=== PATIENT | male | born 1945 | race Caucasian/White ===

== ENCOUNTER 2021-09-03 09:05 | Day surgery (SDC) | payer MEDICARE, OTHER ==
--- NOTE | 2021-09-03 07:33 | PCM.PREANE ---
Preanesthetic Assessment - Procedure Proposed Procedure: Right Total Knee Arthroplasty - Anesthesia/Transfusion/Family Hx Anesthesia History: Prior Anesthesia Without Reaction Family History of Anesthesia Reaction: No Transfusion History: No Prior Transfusion(s) Intubation History: Unknown - Review of Systems General: No Symptoms (Right eye glaucoma/retinal detachment left eye) Pulmonary: No Symptoms (quit smoking 15 years ago, ) Cardiovascular: No Symptoms Gastrointestinal: No Symptoms Neurological: No Symptoms (History of back surgeries (lumbar fusion);/ History of Raynauds's syndrome.), Headache (history of cluster headaches) Other: Reports: None - Physical Assessment NPO Status Date: 09/02/21 NPO Status Time: 19:00 Vital Signs: HR: 65 Sat: 97% Temp: 98.5 B/P: 132/81 Resp: 20 Height: 1.88 m Weight: 80.739 kg ASA Class: 2 Mental Status: Alert & Oriented x3 Airway Class: Mallampati = 2 Dentition: Reports: Normal Dentition (plate on top/partial on bottom) Thyro-Mental Finger Breadths: 3 Mouth Opening Finger Breadths: 3 ROM/Head Extension: Full Lungs: Clear to Auscultation, Normal Respiratory Effort Cardiovascular: Regular Rate, Regular Rhythm, No Murmurs - Lab Values: All labs reviewed and noted and within acceptable ranges to proceed with scheduled procedure. - Imaging/EKG Impressions: CXR: negative EKG: SR rate=66; probable anterior infarct - Allergies Allergies/Adverse Reactions: Allergies Allergy/AdvReac Type Severity Reaction Status Date / Time No Known Allergies Allergy Verified 09/02/21 18:06 - Anesthesia Plan Pre-Op Medication Ordered: Other (Preoperative oral pain meds(lyrica, tylenol, oxycontin) @ 0940) - Acknowledgements Anesthesia Type Planned: General Anesthesia, Spinal (Right Adductor Canal Block under US guidance for post operative pain control requested by Dr. Funes.) Pt an Appropriate Candidate for the Planned Anesthesia: Yes Alternatives and Risks of Anesthesia Discussed w Pt/Guardian: Yes Pt/Guardian Understands and Agrees with Anesthesia Plan: Yes PreAnesthesia Questionnaire HEENT History: Reports: Glaucoma, Impaired Vision Cardiovascular History: Reports: None Respiratory History: Reports: None Gastrointestinal History: Reports: None Genitourinary History: Reports: None [employer]ODUCTION [employer]OL EXPERT History: Reports: None Musculoskeletal History: Reports: Osteoarthritis, Other (See Below) Other Musculoskeletal History: right knee pain Neurological History: Reports: None Psychiatric History: Reports: None Endocrine/Metabolic History: Reports: None Hematologic History: Reports: None Immunologic History: Reports: None Oncologic (Cancer) History: Reports: None Dermatologic History: Reports: None - Infectious Disease History Infectious Disease History: Reports: None - Past Surgical History Head Surgeries/Procedures: Reports: None HEENT Surgical History: Reports: Eye Surgery, Laser Surgery, Retinal Cardiovascular Surgical History: Reports: None Respiratory Surgical History: Reports: None GI Surgical History: Reports: Colonoscopy Female Surgical History: Reports: None Male Surgical History: Reports: None Endocrine Surgical History: Reports: None Neurological Surgical History: Reports: Other (See Below) Other Neurological Surgeries/Procedures: low back surgeries with hardware Musculoskeletal Surgical History: Reports: Other (See Below) Other Musculoskeletal Surgeries/Procedures:: ankle surgery, left wrist surgery Oncologic Surgical History: Reports: None Dermatological Surgical History: Reports: None - SUBSTANCE USE Tobacco Use Status *Q: Former Tobacco User Recreational Drug Use History: No - HOME MEDS Home Medications: Home Meds Amitriptyline [Elavil] 50 mg PO BEDTIME 09/02/21 [History] Gabapentin [Neurontin] 1,000 mg PO QAM 09/02/21 [History] Gabapentin [Neurontin] 500 mg PO QPM 09/02/21 [History] Aspirin [Aspirin EC] 325 mg PO BID #60 tab 09/03/21 [Rx] Hydrocodone/Acetaminophen [HYDROcodone-Acetaminophen 5-325 MG] 1 - 2 each PO Q4H PRN #40 tablet 09/03/21 [Rx] - CURRENT (IN HOUSE) MEDS Current Meds: Current Medications Acetaminophen (Acetaminophen 325 Mg Tab) 975 mg PO ONETIME CORIE Stop: 09/03/21 12:00 Morphine Sulfate 8 mg/Epinephrine HCl 0.3 mg/Cefuroxime Sodium 750 mg/Ketorolac Tromethamine 30 mg/Sodium Chloride 7.9 ml 0 mg .XX ASDIRECTED PRN PRN Reason: Pain Stop: 09/03/21 16:00 Lactated Ringer's (Ringers, Lactated) 1,000 mls @ 125 mls/hr IV ASDIRECTED CORIE Lidocaine/Sodium Bicarbonate (Lidocaine 1%/Sod Bicarbonate In Ns 8.4% 1 Ml Syringe) 0.25 ml IDERM ONETIME PRN PRN Reason: Prior to IV Start Oxycodone HCl (Oxycodone Er 10 Mg Tab.Er) 10 mg PO ONETIME CORIE Stop: 09/03/21 12:00 Pregabalin (Pregabalin 25 Mg Cap) 50 mg PO ONETIME CORIE Stop: 09/03/21 12:00 Sodium Chloride (Sodium Chloride 0.9% 10 Ml Syringe) 10 ml FLUSH ASDIRECTED PRN PRN Reason: Keep Vein Open Discontinued Medications Morphine Sulfate 8 mg/Epinephrine HCl 0.3 mg/Cefuroxime Sodium 750 mg/Ketorolac Tromethamine 30 mg/Sodium Chloride 7.9 ml 0 mg .XX ASDIRECTED PRN PRN Reason: Pain Stop: 09/03/21 16:00
[~2021-09-03 09:05] MED LIST: Acetaminophen 325 MG Tab PO SCH; Dexmedetomidine 200 MCG/2 ML SDV ONE; EPINEPHrine 1 MG/ML SDV ONE; Lactated Ringers 1,000 ML IV SCH; Lidocaine 1%/Sod Bicarbonate in NS 8.4% 1 ML Syringe IDERM PRN; Morphine 8 MG, EPINEPHrine 0.3 MG, Cefuroxime 750 MG, Ketorolac 30 MG, Sodium Chloride ... PRN; Pregabalin 25 MG Cap PO SCH; Ropivacaine 0.5% 5 MG/ML 30 ML SDV ONE; Sodium Chloride 0.9% 10 ML Syringe FLUSH PRN; oxyCODONE ER 10 MG TAB.ER PO SCH
[2021-09-03] MEDS ORDERED: Vancomycin 1 GM SDV ONE (09:44)
[2021-09-03] MEDS ORDERED: ceFAZolin 1 GM Vial ONE (10:33)
[2021-09-03] MEDS ORDERED: fentaNYL 100 MCG/2 ML SDV ONE (10:33)
[2021-09-03] MEDS ORDERED: Propofol 200 MG/20 ML SDV ONE (11:01)
[2021-09-03] MEDS ORDERED: Lactated Ringers 1,000 ML ONE ×2 (11:10→12:09)
[2021-09-03] MEDS ORDERED: Dexamethasone 4 MG/ML 5 ML MDV ONE (11:17)
[2021-09-03] MEDS ORDERED: HYDROmorphone 0.5 MG/0.5 ML Syringe ONE (12:06)
[2021-09-03] MEDS ORDERED: HYDROmorphone 0.5 MG/0.5 ML Syringe IVPUSH PRN (12:23)
[2021-09-03] MEDS ORDERED: ePHEDrine 50 MG/ML SDV IVPUSH PRN (12:23)
[2021-09-03] MEDS ORDERED: fentaNYL 100 MCG/2 ML SDV IVPUSH PRN (12:23)
[2021-09-03] MEDS ORDERED: diphenhydrAMINE 50 MG/ML SDV IVPUSH PRN (12:23)
[2021-09-03] MEDS ORDERED: Ondansetron 4 MG/2 ML SDV IVPUSH PRN (12:23)
--- NOTE | 2021-09-03 12:28 | PCM.POSTAN ---
POST ANESTHESIA ASSESSMENT - MENTAL STATUS Mental Status: Alert - VITAL SIGNS Vital Signs: Last Vital Signs Temp 97.6 09/03/21 1218 Pulse 68 09/03/21 1218 Resp 12 09/03/21 1218 BP 128/83 09/03/21 1218 Pulse Ox 94% 09/03/21 1218 - RESPIRATORY Respiratory Status: Respiratory Rate WNL, Airway Patent, O2 Saturation Stable - CARDIOVASCULAR CV Status: Pulse Rate WNL, Blood Pressure Stable - GASTROINTESTINAL GI Status: No Symptoms - POST OP HYDRATION Hydration Status: Adequate & Stable
--- NOTE | 2021-09-03 12:54 | CR ---
Right knee: AP and crosstable lateral views of the right knee were obtained. Comparison: Prior right knee CT study of 08/21/21. Knee prosthesis is seen. Patellar prosthesis is noted. Soft tissue air is seen. Underlying bony structures show no acute abnormality. Impression: 1. Satisfactory postoperative radiographic appearance of recently placed right knee prostheses. Diagnostic code #2
--- NOTE | 2021-09-03 13:03 | PCM48HPAN ---
Post Anesthesia Note - EVALUATION WITHIN 48HRS OF ANESTHETIC Vital Signs in Normal Range: Yes Patient Participated in Evaluation: Yes Respiratory Function Stable: Yes Airway Patent: Yes Cardiovascular Function Stable: Yes Hydration Status Stable: Yes Pain Control Satisfactory: Yes Nausea and Vomiting Control Satisfactory: Yes Mental Status Recovered: Yes Vital Signs: Last Vital Signs Temp 36.4 C 09/03/21 12:45 Pulse 62 09/03/21 12:45 Resp 17 09/03/21 13:00 BP 126/81 09/03/21 12:45 Pulse Ox 95 09/03/21 13:00 - COMMENTS/OBSERVATIONS Free Text/Narrative:: Right shoulder pain now resolved and patient denies any c/o at this time.
[2021-09-03] MEDS ORDERED: Acetaminophen/HYDROcodone 325-5 MG Tab PO ONE (13:42)
--- NOTE | 2021-09-03 13:58 | PCM.PRNOTE ---
- Free Text/Narrative Note: Addendum entered and electronically signed by Duy Vaughn CRNA 09/03/21 13:56: Original Note: - Free Text/Narrative Note: Postoperative regional pain control requested by surgeon. Pre-op Dx: Rt knee osteoarthritis Post-op Rx: Rt total knee arthroplasty. Procedure: Rt Adductor canal block with U/S guidance Requesting physician: Dr. White Ct Risks and benefits discussed with the patient preoperatively including i nfection, bleeding, incomplete or failed block, possible nerve damage, local anesthetic toxicity. Chart reviewed, VS stable. Permit signed. Patient in PACU , stable , alert and awake after SAB. Time out performed at 13:42. Right mid-thigh was prepped with Chloraprep x 1 and allowed to dry. Under aseptic technique, the Right femoral artery and sartorius muscle were identified under ultrasound prior to needle insertion . 4" Stimuplex needle #22 G was inserted under US guidance. Under direct visualization of needle tip the injection of 0.5% Ropivacaine with 1:200k epinephrine,(mixed with 40 mcg Dexmedetomidine and 6 mg of Dexamethasone), total of 30 mls in divided doses, maintaining negative aspiration was completed around the femoral artery under the sartorius muscle without problems. No local anesthetic toxicity was noted. Patient is awake, stable and tolerated the procedure well. Times: 13:42 - 13:44
--- NOTE | 2021-09-09 18:43 | PCM.OPNOTE ---
- General Post-Op/Procedure Note Date of Surgery/Procedure: 09/03/21 Operative Procedure(s): right total knee arthroplasty with [employer] robotics Pre Op Diagnosis: right knee osteoarthrosis Post-Op Diagnosis: Same Anesthesia Technique: Local, MAC, Spinal Primary Surgeon: Christopher Funes Anesthesia Provider: Duy Vaughn Advance Se[employer] Delivery System Maintainer: Meagan Benton Advance Seal Delivery System Maintainer: Latrice Lerma EBL in mLs: 150 Complications: None Condition: Good Free Text/Narrative:: 04/29 9mm 40x11
--- NOTE | 2021-09-23 18:24 | OR ---
DATE OF OPERATION: 09/03/2021 SURGEON: Christopher Funes MD OPERATION PERFORMED: Right total knee arthroplasty with [employer] robot[employer]. PREOPERATIVE DIAGNOSIS: Right knee osteoarthrosis. POSTOPERATIVE DIAGNOSIS: Right knee osteoarthrosis. ANESTHESIA: Local MAC with spinal. ANESTHESIA PROVIDER: Teodora Garcia ASSISTANTS: Meagan Benton PA-C and Latrice Lerma LPN ESTIMATED BLOOD LOSS: 150 mL. COMPLICATIONS: None. CONDITION: Stable. IMPLANTS: 1. [employer] size 8 press-fit CR femur. 2. [employer] size 8 press-fit tibial baseplate. 3. [employer] size 8 to 9 mm CS polyethylene insert. 4. Hudson size 40 x 11 mm press-fit asymmetric patella. DESCRIPTION OF PROCEDURE: The patient was identified in the preop holding area. Proper site was marked and identified by the surgeon. The patient was taken back to the operating theater, where after adequate anesthesia, the patient's right lower extremity had a nonsterile tourniquet applied and then it was sterilely prepped and draped in the usual sterile fashion. OR time-out was performed. The patient received 2 g IV Ancef. Leg villalba was then applied to the right lower extremity. At this time, the right lower extremity was exsanguinated. Tourniquet was insufflated to 250 mmHg. Standard anterior incision was made. Medial parapatellar arthrotomy was created. Deep fibers of the MCL were raised and anterior fat pad was resected. Attention was turned to the patella. Patella measured 27, it was resected to a 15 for a 40 x 11 mm patella. Drill holes were then drilled. Attention was then turned to the femur. Two 4.0 Schanz pins were placed intra-incisionally on the femur for the [employer] James robotic array and then 2 more were placed on the tibia 3 fingerbreadths below the tibial tubercle. The [employer] James robotic arrays were placed on both the femur and the tibia at this time as well as checkpoints on the femur and tibia. Hip center rotation was then obtained. The medial and lateral malleoli were marked as well as the checkpoints were marked for the [employer] robotic plan. The patient's knee was brought to full extension, varus and valgus stresses were applied, and then into 90 degrees of flexion. [employer] robotic plan for this patient was then undertaken to match the flexion and extension gaps. A straight saw blade was then brought in. Tibial cut was completed as well as an anterior femoral cut, anterior chamfer cut, and posterior femoral cut. Saw blade was then switched out and the distal femoral cut as well as the posterior chamfer cut was completed. All bony fragments were removed. At this time, medial and lateral menisci were resected as well as any posterior osteophytes. Attention was turned to the tibia. The size 8 trial baseplate was placed on the tibia and a size 8 trial femur was placed on the femur. A size 8 to 9 mm trial poly was placed. The patient's knee was brought to full extension and flexion. Varus and valgus stresses were applied, was found to be stable with no instability. No signs of liftoff or loosening on the tibial baseplate. At this time, femoral drill holes were drilled, and the tibia was stamped and drilled in proper rotation. All trial implants were then removed. The size 8 tibial baseplate was impacted into place, size 8 femoral component was impacted into place, and then a size 8 to 9 mm CS polyethylene insert was impacted into place. A size 40 x 11 mm press-fit patella was then press-fit into place. The tourniquet was deflated. Bleeders were cauterized. 1 L pulse lavage irrigation with Ancef was irrigated through the knee along with 400 mL Irrisept irrigation. Periarticular injection was completed. Topical tranexamic acid and vancomycin powder were applied. All checkpoints and pins were removed. At this point, a #2 barbed suture was used for closure of the medial parapatellar arthrotomy in flexion. 2- 0 Vicryl and Stratafix were used for subcutaneous closure. Prineo was used for cutaneous closure. 3-0 nylons were used for closure of the pin holes on the tibia. The patient had a sterile soft dressing applied. The patient had an ZULEMA wrap applied and was sent to PACU in stable condition. The patient tolerated the procedure well. MMODAL /[id number]
== END 2021-09-03 14:40 | disposition home or self-care (01) ==
LOC: JD.SDS 09:05
PROVIDERS: ATTEND Orthopaedic Surgery
DX: M17.11 Unilateral primary osteoarthritis, right knee (principal); Z87.891 Personal history of nicotine dependence; Z98.890 Other specified postprocedural states
CPT/HCPCS: 27447; 73560; 97110; 97116; 97161; A9270; C1713; C1776; J0171; J0690; J0697; J1100; J1170; J1885; J2270; J2704; J2795; J3010; J3370; J7120; 01402; 64450; 99100

== ENCOUNTER 2025-08-01 08:08 | Day surgery (SDC) | payer MEDICARE, OTHER ==
[~2025-08-01 08:08] MED LIST changes: -Acetaminophen 325 MG Tab PO SCH; -Dexmedetomidine 200 MCG/2 ML SDV ONE; -EPINEPHrine 1 MG/ML SDV ONE; -Lactated Ringers 1,000 ML IV SCH; -Lidocaine 1%/Sod Bicarbonate in NS 8.4% 1 ML Syringe IDERM PRN; -Morphine 8 MG, EPINEPHrine 0.3 MG, Cefuroxime 750 MG, Ketorolac 30 MG, Sodium Chloride ... PRN; -Pregabalin 25 MG Cap PO SCH; -Ropivacaine 0.5% 5 MG/ML 30 ML SDV ONE; +Sodium Chloride 0.9% 10 ML Syringe FLUSH SCH; -oxyCODONE ER 10 MG TAB.ER PO SCH
[2025-08-01] MEDS: Lactated Ringers 1,000 ML IV SCH (08:15)
[2025-08-01] MEDS ORDERED: propofoL 500 MG/50 ML 50 ML ONE (08:17)
[2025-08-01] MEDS ORDERED: fentaNYL 250 MCG/5 ML SDV ONE (08:59)
[2025-08-01] MEDS ORDERED: Propofol 200 MG/20 ML SDV ONE ×2 (09:00→10:03)
[2025-08-01] MEDS ORDERED: Ondansetron 4 MG/2 ML SDV ONE (09:06)
[2025-08-01] MEDS ORDERED: ePHEDrine 50 MG/ML SDV ONE (09:22)
[2025-08-01] MEDS: Morphine 8 MG, EPINEPHrine 0.3 MG, Cefuroxime 750 MG, Ketorolac 30 MG, Sodium Chloride ... PRN (10:04)
[2025-08-01] MEDS ORDERED: Ondansetron 4 MG/2 ML SDV IVPUSH PRN (10:04)
[2025-08-01] MEDS: fentaNYL 100 MCG/2 ML SDV IVPUSH PRN (10:41)
[2025-08-01] MEDS: Acetaminophen/HYDROcodone 325-5 MG Tab PO SCH (11:56)
== END 2025-08-01 14:50 | disposition home or self-care (01) ==
LOC: JD.SDS 08:08
PROVIDERS: ATTEND Orthopaedic Surgery
DX: M16.11 Unilateral primary osteoarthritis, right hip (principal); Z79.899 Other long term (current) drug therapy; Z87.891 Personal history of nicotine dependence
CPT/HCPCS: 0055T; 27130; 73501; 97116; 97162; A9270; C1713; C1776; J0169; J0690; J0697; J1885; J2003; J2272; J2405; J2704; J3010; J3373; J7120; J3490